=== PATIENT | female | born 1950 | race Caucasian/White ===

== ENCOUNTER 2016-03-27 10:53 | Outpatient (CLI) | payer MEDICAID | END 2016-03-27 10:54 | disposition home or self-care (01) | DX: I26.99 Other pulmonary embolism without acute cor pulmonale (principal) ==

== ENCOUNTER 2016-05-01 10:25 | Outpatient (CLI) | payer MEDICAID | END 2016-05-01 10:26 | disposition home or self-care (01) | DX: I26.99 Other pulmonary embolism without acute cor pulmonale (principal) ==

== ENCOUNTER 2016-05-28 09:57 | Outpatient (CLI) | payer MEDICARE, MEDICAID | END 2016-05-28 09:58 | disposition home or self-care (01) | DX: I26.99 Other pulmonary embolism without acute cor pulmonale (principal) ==

== ENCOUNTER 2016-06-04 09:58 | Outpatient (CLI) | payer MEDICARE, MEDICAID | END 2016-06-04 09:59 | disposition home or self-care (01) | DX: I26.99 Other pulmonary embolism without acute cor pulmonale (principal) ==

== ENCOUNTER 2016-06-15 09:40 | Outpatient (CLI) | payer MEDICARE, MEDICAID | END 2016-06-15 09:41 | disposition home or self-care (01) | DX: I26.99 Other pulmonary embolism without acute cor pulmonale (principal); R06.02 Shortness of breath; R00.2 Palpitations; Z95.1 Presence of aortocoronary bypass graft; I73.9 Peripheral vascular disease, unspecified; I10 Essential (primary) hypertension; E78.00 Pure hypercholesterolemia, unspecified; K21.9 Gastro-esophageal reflux disease without esophagitis; M79.7 Fibromyalgia ==

== ENCOUNTER 2016-07-17 08:31 | Outpatient (CLI) | payer MEDICARE | END 2016-07-17 08:32 | disposition home or self-care (01) | DX: I26.99 Other pulmonary embolism without acute cor pulmonale (principal); I20.8 Other forms of angina pectoris; Z95.1 Presence of aortocoronary bypass graft; I10 Essential (primary) hypertension; E78.00 Pure hypercholesterolemia, unspecified ==

== ENCOUNTER 2016-07-30 08:31 | Outpatient (CLI) | payer MEDICARE | END 2016-07-30 08:32 | disposition home or self-care (01) | DX: I10 Essential (primary) hypertension (principal) ==

== ENCOUNTER 2016-08-22 08:12 | Outpatient (CLI) | payer MEDICARE | END 2016-08-22 08:13 | disposition home or self-care (01) | LOC: LAB.F 08:12 | PROVIDERS: ATTEND Nurse Practitioner Gerontology | DX: I26.99 Other pulmonary embolism without acute cor pulmonale (principal) | CPT/HCPCS: 85610 ==

== ENCOUNTER 2016-09-24 09:16 | Outpatient (CLI) | payer MEDICARE | END 2016-09-24 09:17 | disposition home or self-care (01) | LOC: LAB.F 09:16 | PROVIDERS: ATTEND Nurse Practitioner Gerontology | DX: I26.99 Other pulmonary embolism without acute cor pulmonale (principal) | CPT/HCPCS: 85610 ==

== ENCOUNTER 2016-09-28 08:36 | Outpatient (CLI) | payer MEDICARE ==
[2016-09-28 12:22] LABS: ALBUMIN/GLOBULIN RATIO 1.2 (1.0-2.2); BILIRUBIN,TOTAL 0.4 mg/dL (0.2-1.0); CALCIUM 8.8 mg/dL (8.5-10.3); CREATININE 0.7 mg/dL (0.4-1.0); POTASSIUM 3.8 mmol/L (3.5-5.0); TOTAL PROTEIN 6.9 g/dL (6.7-8.2)
== END 2016-09-28 08:37 | disposition home or self-care (01) ==
LOC: LAB.F 08:36
PROVIDERS: ATTEND Nurse Practitioner Gerontology
DX: R60.0 Localized edema (principal)
CPT/HCPCS: 36415; 80053

== ENCOUNTER 2016-11-02 08:00 | Outpatient (CLI) | payer MEDICARE | END 2016-11-02 08:01 | disposition home or self-care (01) | LOC: LAB.N 08:00 | PROVIDERS: ATTEND Nurse Practitioner Gerontology | DX: I26.99 Other pulmonary embolism without acute cor pulmonale (principal) | CPT/HCPCS: 36415; 84443; 85610 ==

== ENCOUNTER 2016-12-03 10:40 | Outpatient (CLI) | payer MEDICARE | END 2016-12-03 10:41 | disposition home or self-care (01) | LOC: LAB.F 10:40 | PROVIDERS: ATTEND Nurse Practitioner Gerontology | DX: I26.99 Other pulmonary embolism without acute cor pulmonale (principal) | CPT/HCPCS: 85610 ==

== ENCOUNTER 2016-12-26 15:07 | Outpatient (CLI) | payer MEDICARE ==
[2016-12-26 16:10] LABS: CREATININE 0.9 mg/dL (0.4-1.0); POTASSIUM 4.9 mmol/L (3.5-5.0)
== END 2016-12-26 15:08 | disposition home or self-care (01) ==
LOC: LAB 15:07
PROVIDERS: ATTEND Internal Medicine Cardiovascular Disease
DX: I50.32 Chronic diastolic (congestive) heart failure (principal); I10 Essential (primary) hypertension
CPT/HCPCS: 36415; 80069

== ENCOUNTER 2017-01-08 10:24 | Outpatient (CLI) | payer MEDICARE, MEDICAID | END 2017-01-08 10:25 | disposition home or self-care (01) | LOC: LAB.F 10:24 | PROVIDERS: ATTEND Nurse Practitioner Gerontology | DX: I26.99 Other pulmonary embolism without acute cor pulmonale (principal) | CPT/HCPCS: 85610 ==

== ENCOUNTER 2017-01-18 10:12 | Outpatient (CLI) | payer MEDICARE | END 2017-01-18 10:13 | disposition home or self-care (01) | LOC: LAB.F 10:12 | PROVIDERS: ATTEND Nurse Practitioner Gerontology | DX: I26.99 Other pulmonary embolism without acute cor pulmonale (principal) | CPT/HCPCS: 85610 ==

== ENCOUNTER 2017-02-08 10:35 | Outpatient (CLI) | payer MEDICARE | END 2017-02-08 10:36 | disposition home or self-care (01) | LOC: LAB.F 10:35 | PROVIDERS: ATTEND Nurse Practitioner Gerontology | DX: I26.99 Other pulmonary embolism without acute cor pulmonale (principal) | CPT/HCPCS: 85610 ==

== ENCOUNTER 2017-02-26 13:00 | Outpatient (CLI) | payer MEDICARE | END 2017-02-26 13:01 | disposition home or self-care (01) | LOC: LAB.F 13:00 | PROVIDERS: ATTEND Nurse Practitioner Gerontology | DX: I26.99 Other pulmonary embolism without acute cor pulmonale (principal) | CPT/HCPCS: 85610 ==

== ENCOUNTER 2017-03-28 14:08 | Outpatient (CLI) | payer MEDICARE | END 2017-03-28 14:09 | LOC: LAB.N 14:08 | PROVIDERS: ATTEND Nurse Practitioner Gerontology | DX: I26.99 Other pulmonary embolism without acute cor pulmonale (principal) | CPT/HCPCS: 85610 ==

== ENCOUNTER 2017-04-23 15:13 | Outpatient (CLI) | payer MEDICARE | END 2017-04-23 15:14 | disposition home or self-care (01) | LOC: LAB.F 15:13 | PROVIDERS: ATTEND Nurse Practitioner Gerontology | DX: I26.99 Other pulmonary embolism without acute cor pulmonale (principal) | CPT/HCPCS: 85610 ==

== ENCOUNTER 2017-05-21 10:09 | Outpatient (CLI) | payer MEDICARE | END 2017-05-21 10:10 | disposition home or self-care (01) | LOC: LAB.F 10:09 | PROVIDERS: ATTEND Nurse Practitioner Gerontology | DX: I26.99 Other pulmonary embolism without acute cor pulmonale (principal) | CPT/HCPCS: 85610 ==

== ENCOUNTER 2017-06-10 08:00 | Outpatient (CLI) | payer MEDICARE | END 2017-06-10 08:01 | disposition home or self-care (01) | LOC: LAB.N 08:00 | PROVIDERS: ATTEND Nurse Practitioner Gerontology | DX: I26.99 Other pulmonary embolism without acute cor pulmonale (principal) | CPT/HCPCS: 85610 ==

== ENCOUNTER 2017-06-13 09:00 | Outpatient (CLI) | payer MEDICARE ==
[2017-06-13 10:32] LABS: BASOPHILS % (AUTO) 0.4 %; EOSINOPHILS # (AUTO) 0.2 10^3/uL (0.0-0.7); HGB - HEMOGLOBIN 13.4 g/dL (12.0-16.0); LYMPHOCYTES # (AUTO) 3.1 10^3/uL (1.5-3.5); LYMPHOCYTES % (AUTO) 37.5 %; MEAN CORPUSCULAR HEMOGLOBIN 26.9 pg (27.0-31.0); MEAN CORPUSCULAR HGB CONC 32.9 g/dL (32.0-36.0); MEAN CORPUSCULAR VOLUME 81.8 fL (81.0-99.0); MEAN PLATELET VOLUME 8.6 fL (7.9-10.8); MONOCYTES # (AUTO) 0.6 10^3/uL (0.0-1.0); MONOCYTES % (AUTO) 6.7 %; NEUTROPHILS # (AUTO) 4.4 10^3/uL (1.5-6.6); NEUTROPHILS % (AUTO) 53.4 %; PLT - PLATELET COUNT 295 10^3/uL (130-450); RED BLOOD COUNT 4.99 10^6/uL (4.20-5.40); RED CELL DISTRIBUTION WIDTH 16.2 % (12.0-15.0); WHITE BLOOD COUNT 8.2 x10^3/uL (4.8-10.8)
[2017-06-13 10:50] LABS: ALBUMIN 3.7 g/dL (3.2-5.5); ALBUMIN/GLOBULIN RATIO 1.1 (1.0-2.2); ALKALINE PHOSPHATASE 108 IU/L (42-121); ALT ALANINE AMINOTRANSFERASE 13 IU/L (10-60); AST ASPARTATE AMINOTRANSFERASE 20 IU/L (10-42); BILIRUBIN,TOTAL 0.5 mg/dL (0.2-1.0); BUN - BLOOD UREA NITROGEN 11 mg/dL (6-20); CARBON DIOXIDE - CO2 28 mmol/L (21-32); CHLORIDE 104 mmol/L (101-111); CHOL/HDL RATIO 5.3 (<4.4); CHOLESTEROL 208 mg/dL; CREATININE 0.8 mg/dL (0.4-1.0); GFR - MDRD 72 (>89); GLUCOSE 102 mg/dL (70-100); HDL CHOLESTEROL 39 mg/dL; LDL CHOLESTEROL,CALCULATED 123 mg/dL; LDL/HDL RATIO 3.2 (<4.4); SODIUM 139 mmol/L (135-145); TOTAL PROTEIN 7.1 g/dL (6.7-8.2); VLDL CHOLESTEROL 46 mg/dL
== END 2017-06-13 09:01 | disposition home or self-care (01) ==
LOC: LAB.F 09:00
PROVIDERS: ATTEND Nurse Practitioner Gerontology
DX: E78.5 Hyperlipidemia, unspecified (principal); I10 Essential (primary) hypertension; Z79.899 Other long term (current) drug therapy
CPT/HCPCS: 36415; 80053; 80061; 83721; 84443; 85025

== ENCOUNTER 2017-07-16 11:16 | Outpatient (CLI) | payer MEDICARE | END 2017-07-16 11:17 | disposition home or self-care (01) | LOC: LAB.F 11:16 | PROVIDERS: ATTEND Nurse Practitioner Gerontology | DX: I26.99 Other pulmonary embolism without acute cor pulmonale (principal) | CPT/HCPCS: 85610 ==

== ENCOUNTER 2017-08-09 14:12 | Outpatient (CLI) | payer MEDICARE | END 2017-08-09 14:13 | disposition home or self-care (01) | LOC: LAB.F 14:12 | PROVIDERS: ATTEND Nurse Practitioner Gerontology | DX: I26.99 Other pulmonary embolism without acute cor pulmonale (principal) | CPT/HCPCS: 85610 ==

== ENCOUNTER 2017-08-14 13:58 | Outpatient (CLI) | payer MEDICARE | END 2017-08-14 13:59 | disposition home or self-care (01) | LOC: LAB.F 13:58 | PROVIDERS: ATTEND Nurse Practitioner Gerontology | DX: I26.99 Other pulmonary embolism without acute cor pulmonale (principal) | CPT/HCPCS: 85610 ==

== ENCOUNTER 2017-08-23 13:59 | Outpatient (CLI) | payer MEDICARE | END 2017-08-23 14:00 | disposition home or self-care (01) | LOC: LAB.F 13:59 | PROVIDERS: ATTEND Nurse Practitioner Gerontology | DX: I26.99 Other pulmonary embolism without acute cor pulmonale (principal) | CPT/HCPCS: 85610 ==

== ENCOUNTER 2017-09-03 12:08 | Outpatient (CLI) | payer MEDICARE | END 2017-09-03 12:09 | disposition home or self-care (01) | LOC: LAB.F 12:08 | PROVIDERS: ATTEND Nurse Practitioner Gerontology | DX: I26.99 Other pulmonary embolism without acute cor pulmonale (principal) | CPT/HCPCS: 85610 ==

== ENCOUNTER 2017-09-23 11:21 | Outpatient (CLI) | payer MEDICARE | END 2017-09-23 11:22 | disposition home or self-care (01) | LOC: LAB.F 11:21 | PROVIDERS: ATTEND Nurse Practitioner Gerontology | DX: I26.99 Other pulmonary embolism without acute cor pulmonale (principal) | CPT/HCPCS: 85610 ==

== ENCOUNTER 2017-10-08 10:48 | Outpatient (CLI) | payer MEDICARE | END 2017-10-08 10:49 | disposition home or self-care (01) | LOC: LAB.F 10:48 | PROVIDERS: ATTEND Nurse Practitioner Gerontology | DX: I26.99 Other pulmonary embolism without acute cor pulmonale (principal) | CPT/HCPCS: 85610 ==

== ENCOUNTER 2017-10-24 11:33 | Outpatient (CLI) | payer MEDICARE | END 2017-10-24 11:34 | disposition home or self-care (01) | LOC: LAB.F 11:33 | PROVIDERS: ATTEND Nurse Practitioner Gerontology | DX: I26.99 Other pulmonary embolism without acute cor pulmonale (principal) | CPT/HCPCS: 85610 ==

== ENCOUNTER 2017-11-26 14:31 | Outpatient (CLI) | payer MEDICARE | END 2017-11-26 14:32 | disposition home or self-care (01) | LOC: LAB.F 14:31 | PROVIDERS: ATTEND Nurse Practitioner Gerontology | DX: I26.99 Other pulmonary embolism without acute cor pulmonale (principal) | CPT/HCPCS: 85610 ==

== ENCOUNTER 2017-12-26 13:05 | Outpatient (CLI) | payer MEDICARE | END 2017-12-26 13:06 | disposition home or self-care (01) | LOC: LAB.F 13:05 | PROVIDERS: ATTEND Nurse Practitioner Gerontology | DX: I26.99 Other pulmonary embolism without acute cor pulmonale (principal) | CPT/HCPCS: 85610 ==

== ENCOUNTER 2018-02-03 14:01 | Outpatient (CLI) | payer MEDICARE ==
[2018-02-03 18:13] LABS: INR 1.7 (0.8-1.2)
== END 2018-02-03 14:02 | disposition home or self-care (01) ==
LOC: LAB.F 14:01
PROVIDERS: ATTEND Nurse Practitioner Gerontology
DX: Z79.01 Long term (current) use of anticoagulants (principal)
CPT/HCPCS: 36415; 85610

== ENCOUNTER 2019-06-08 08:24 | Outpatient (CLI) | payer MEDICARE, MEDICAID ==
[2019-06-08 12:26] LABS: BASOPHILS # (AUTO) 0.1 10^3/uL (0.0-0.1); BASOPHILS % (AUTO) 0.6 %; EOSINOPHILS # (AUTO) 0.1 10^3/uL (0.0-0.7); EOSINOPHILS % (AUTO) 1.6 %; LYMPHOCYTES # (AUTO) 2.8 10^3/uL (1.5-3.5); LYMPHOCYTES % (AUTO) 34.9 %; MEAN CORPUSCULAR HGB CONC 31.4 g/dL (32.0-36.0); MEAN PLATELET VOLUME 10.8 fL (7.9-10.8); MONOCYTES # (AUTO) 0.6 10^3/uL (0.0-1.0); MONOCYTES % (AUTO) 7.3 %; NEUTROPHILS # (AUTO) 4.4 10^3/uL (1.5-6.6); NEUTROPHILS % (AUTO) 55.3 %; PLT - PLATELET COUNT 308 10^3/uL (130-450); RED BLOOD COUNT 5.56 10^6/uL (4.20-5.40); RED CELL DISTRIBUTION WIDTH 14.2 % (12.0-15.0)
[2019-06-08 12:44] LABS: ALBUMIN 3.8 g/dL (3.2-5.5); ALBUMIN/GLOBULIN RATIO 1.2 (1.0-2.2); ALKALINE PHOSPHATASE 108 IU/L (42-121); ALT ALANINE AMINOTRANSFERASE 13 IU/L (10-60); AST ASPARTATE AMINOTRANSFERASE 19 IU/L (10-42); BILIRUBIN,TOTAL 0.7 mg/dL (0.2-1.0); BUN - BLOOD UREA NITROGEN 13 mg/dL (6-20); CALCIUM 9.1 mg/dL (8.5-10.3); CARBON DIOXIDE - CO2 26 mmol/L (21-32); CHLORIDE 103 mmol/L (101-111); CHOL/HDL RATIO 6.6 (<4.4); CHOLESTEROL 318 mg/dL; CREATININE 0.8 mg/dL (0.4-1.0); GFR - MDRD 71 (>89); GLUCOSE 99 mg/dL (70-100); HDL CHOLESTEROL 48 mg/dL; LDL CHOLESTEROL,CALCULATED 234 mg/dL; LDL/HDL RATIO 4.9 (<4.4); SODIUM 139 mmol/L (135-145); TOTAL PROTEIN 7.1 g/dL (6.7-8.2); VLDL CHOLESTEROL 36 mg/dL
== END 2019-06-08 23:59 | disposition home or self-care (01) ==
LOC: LAB.N 08:24
PROVIDERS: ATTEND Nurse Practitioner Gerontology
DX: E78.5 Hyperlipidemia, unspecified (principal); I10 Essential (primary) hypertension; I25.10 Atherosclerotic heart disease of native coronary artery without angina pectoris
CPT/HCPCS: 36415; 80053; 80061; 83721; 85025

== ENCOUNTER 2020-04-25 21:47 | Emergency (ER) | payer MEDICARE, MEDICAID ==
[2020-04-25] MEDS ORDERED: SODIUM CHLORIDE 0.9% 1,000 ML IV STA (22:06)
[2020-04-25 22:30] LABS: BASOPHILS # (AUTO) 0.1 10^3/uL (0.0-0.1); BASOPHILS % (AUTO) 0.4 %; EOSINOPHILS % (AUTO) 0.3 %; HGB - HEMOGLOBIN 14.1 g/dL (12.0-16.0); LYMPHOCYTES # (AUTO) 2.2 10^3/uL (1.5-3.5); LYMPHOCYTES % (AUTO) 17.5 %; MEAN CORPUSCULAR HGB CONC 32.3 g/dL (32.0-36.0); MEAN CORPUSCULAR VOLUME 86.9 fL (81.0-99.0); MEAN PLATELET VOLUME 9.9 fL (7.9-10.8); MONOCYTES # (AUTO) 1.4 10^3/uL (0.0-1.0); NEUTROPHILS # (AUTO) 8.7 10^3/uL (1.5-6.6); NEUTROPHILS % (AUTO) 70.6 %; PLT - PLATELET COUNT 293 10^3/uL (130-450); RED BLOOD COUNT 5.03 10^6/uL (4.20-5.40); RED CELL DISTRIBUTION WIDTH 13.3 % (12.0-15.0); WHITE BLOOD COUNT 12.4 x10^3/uL (4.8-10.8)
[2020-04-25 22:44] LABS: D-DIMER > 1050.0 ng/mL (200.0-255.0)
[2020-04-25 22:45] LABS: ALBUMIN 3.6 g/dL (3.2-5.5); BILIRUBIN,TOTAL 0.9 mg/dL (0.2-1.0); CALCIUM 8.6 mg/dL (8.5-10.3); CREATININE 0.9 mg/dL (0.4-1.0); TOTAL PROTEIN 7.3 g/dL (6.7-8.2)
[2020-04-25 22:57] LABS: INR 1.3 (0.8-1.2); PT - PROTHROMBIN TIME 14.7 secs (9.9-12.6)
[2020-04-25] MEDS ORDERED: HYDROmorphone 1 MG/ML CARPUJECT IVP STA (23:20)
[2020-04-25] MEDS ORDERED: KETOROLAC 30 MG/ML VIAL IVP STA (23:21)
[2020-04-25] MEDS ORDERED: IOVERSOL 320 100 ML VIAL IVP ONE (23:47)
[2020-04-26] MEDS ORDERED: IOVERSOL 320 100 ML VIAL IVP ONE (00:29)
--- NOTE | 2020-04-26 00:33 | ED Physician Documentation ---
History of Present Illness - Stated complaint Stated Complaint: HURTS TO BREATHE - Chief complaint Chief Complaint: Resp - History obtained from History obtained from: Patient - Additonal information Additional information: Patient comes emergency department chief complaint of pain in right chest with breathing. Patient states that her symptoms all started when she took a fall 4 days ago onto her left side. She states she had her some pain in her left lateral chest at that time and that it also hurts to take a deep breath. She states that after 2 days, she was trying to crack her back when night when she felt a crack and suddenly, the pain moved to the right side. She states she has not had any further pain on the left since then. Patient denies fevers or chills. No palpitations. No cough. No nausea or vomiting. No radiation of the pain to anywhere else. Patient is coming because she states that it feels like when she had a pulmonary embolism before. Patient notes history of pu lmonary embolism 8 years ago and was on Coumadin until 3 years ago, at which time she self DC'd the med, citing side effects. The patient does not know what caused the PE, and thinks that no source was found, though records reveal that several years ago, patient was noted to have a DVT on lower extremity ultrasound. She states she has not had any further problems that she knows of until now. She denies any pain in her either of her legs. No swelling that is unusual. She states both her lower extremities swell about equally and are currently equally swollen to the usual amount. No other complaints at this time. Review of Systems Ten Systems: 10 systems reviewed and negative Constitutional: reports: Reviewed and negative. denies: Fever, Chills Eyes: reports: Reviewed and negative Ears: reports: Reviewed and negative Nose: reports: Reviewed and negative Throat: reports: Reviewed and negative Cardiac: reports: Chest pain / pressure Respiratory: reports: Reviewed and negative. denies: Dyspnea, Cough GI: reports: Reviewed and negative : reports: Reviewed and negative Skin: reports: Reviewed and negative Musculoskeletal: reports: Reviewed and negative Neurologic: reports: Reviewed and negative Psychiatric: reports: Reviewed and negative Endocrine: reports: Reviewed and negative Immunocompromised: reports: Reviewed and negative PD PAST MEDICAL HISTORY - Past Medical History Past Medical History: Yes Cardiovascular: Hypertension, High cholesterol, Coronary artery disease, Deep vein thrombosis, Pulmonary embolism Respiratory: None Endocrine/Autoimmune: None GI: GERD : Incontinence HEENT: None Psych: None Musculoskeletal: None Derm: None - Past Surgical History Past Surgical History: Yes Ortho: Knee replacement /[employer]: Hysterectomy Cardiovascular: CABG, Coronary stent HEENT: Tonsil/Adenoidectomy - Present Medications Home Medications: Ambulatory Orders Medication Instructions Recorded Confirmed Apixaban [Eliquis] 5 mg PO BID #120 tablet 04/26/20 Apixaban [Eliquis] 10 mg PO BID 7 Days #14 tablet 04/26/20 Azithromycin [Zithromax] 0 mg PO DAILY #6 tablet 04/26/20 HYDROcod/ACETAM 5/325 [[place] 5/325] 1 - 2 ea PO Q6H PRN #15 tablet 04/26/20 - Allergies Allergies/Adverse Reactions: Allergies Allergy/AdvReac Type Severity Reaction Status Date / Time Jfhwido-Mgf-Sws Reductase AdvReac Intermediate muscle Verified 04/25/20 21:51 Inhibitor tone problem - Social History Does the pt smoke?: No Smoking Status: Never smoker Does the pt drink ETOH?: No Does the pt have substance abuse?: No PD ED PE NORMAL - Vitals Vital signs reviewed: Yes - General General: Alert and oriented X 3, No acute distress, Well developed/nourished - HEENT HEENT: Atraumatic, PERRL, EOMI, Moist mucous membranes - Neck Neck: Supple, no meningeal sign - Cardiac Cardiac: RRR, No murmur, Strong equal pulses - Respiratory Respiratory: No respiratory distress, Clear bilaterally - Abdomen Abdomen: Soft, Non tender, Non distended - Derm Derm: Normal color, Warm and dry, No rash - Extremities Extremities: No deformity, No calf tenderness / cord, Other (Trace pitting edema bilaterally, calf size symmetrical.) - Neuro Neuro: Alert and oriented X 3 - Psych Psych: Normal mood, Normal affect Results - Vitals Vitals: Vital Signs - 24 hr 04/25/20 04/25/20 04/25/20 21:51 22:25 22:30 Temperature 36.5 C 36.6 C Heart Rate 100 99 95 Respiratory 20 22 24 Rate Blood Pressure 154/70 H 187/102 H 171/116 H O2 Saturation 96 97 97 04/25/20 04/25/20 04/26/20 23:00 23:30 00:30 Temperature 36.5 C Heart Rate 84 88 75 Respiratory 21 23 21 Rate Blood Pressure 179/78 H 185/72 H 157/74 H O2 Saturation 96 98 94 04/26/20 04/26/20 04/26/20 01:00 01:30 02:00 Temperature 36.8 C 36.7 C Heart Rate 75 86 72 Respiratory 24 22 19 Rate Blood Pressure 161/79 H 135/70 H 157/58 H O2 Saturation 93 94 95 04/26/20 04/26/20 04/26/20 02:30 03:00 03:30 Temperature 36.7 C 36.8 C 36.8 C Heart Rate 92 69 75 Respiratory 23 17 21 Rate Blood Pressure 155/69 H 156/68 H 165/73 H O2 Saturation 95 94 96 Oxygen O2 Source Room air - EKG (time done) 2213 Rate: Rate (enter#) (90) Rhythm: NSR [place]: Normal Intervals: Normal ME, Prolonged QT QRS: Normal Ischemia: Normal ST segments, Non specific changes Compare to prior EKG: Old EKG unavailable Computer interpretation: Agree with computer - Labs Labs: Laboratory Tests 04/25/20 04/25/20 04/25/20 22:23 22:23 22:23 WBC 12.4 H RBC 5.03 Hgb 14.1 Hct 43.7 MCV 86.9 MCH 28.0 MCHC 32.3 RDW 13.3 Plt Count 293 MPV 9.9 Neut # (Auto) 8.7 H Lymph # (Auto) 2.2 Vance # (Auto) 1.4 H Eos # (Auto) 0.0 Baso # (Auto) 0.1 Absolute Nucleated RBC 0.00 Nucleated RBC % 0.0 PT 14.7 H INR 1.3 H D-Dimer > 1050.0 H Sodium 135 Potassium 3.4 L Chloride 100 L Carbon Dioxide 25 Anion Gap 10.0 BUN 12 Creatinine 0.9 Estimated GFR (MDRD) 62 L Glucose 122 H Calcium 8.6 Total Bilirubin 0.9 AST 21 ALT 11 Alkaline Phosphatase 106 Troponin I High Sens B-Natriuretic Peptide Total Protein 7.3 Albumin 3.6 Globulin 3.7 Albumin/Globulin Ratio 1.0 Lipase 20 L 04/25/20 04/25/20 22:23 22:23 WBC RBC Hgb Hct MCV MCH MCHC RDW Plt Count MPV Neut # (Auto) Lymph # (Auto) Vance # (Auto) Eos # (Auto) Baso # (Auto) Absolute Nucleated RBC Nucleated RBC % PT INR D-Dimer Sodium Potassium Chloride Carbon Dioxide Anion Gap BUN Creatinine Estimated GFR (MDRD) Glucose Calcium Total Bilirubin AST ALT Alkaline Phosphatase Troponin I High Sens 4.8 B-Natriuretic Peptide 16 Total Protein Albumin Globulin Albumin/Globulin Ratio Lipase - Rads (name of study) CXR Radiology: Final report received, EMP read indepedently, See rad report (mild L basilar atelectasis) CTA chest Radiology: Final report received, EMP read indepedently (multiple bilateral PEs, multifocal peripheral consolidations bilaterally, atelectasis, infiltrates, or infarcts.), See rad report PD MEDICAL DECISION MAKING - ED course Complexity details: reviewed old records, reviewed results, re-evaluated patient, considered differential, d/w patient ED course: The patient's symptoms sounded more musculoskeletal, especially considering the patient's fall and the "cracking of the back" with pain moving over to the right. However, I was concerned about the patient's history of DVT and PE, so I did go ahead and get an EKG, chest x-ray, and labs. Work-up thus far was largely unremarkable, except for a D-dimer that was over 1000. I felt CTA of the thorax was indicated at this point, and this did show multiple bilateral small PEs. The patient then did undergo bilateral lower extremity ultrasound and was found to have extensive acute and chronic clot in both of her legs. The patient's cardiac silhouette was of normal size, and her troponin and BNP were normal. Additionally, the patient's vital signs were unremarkable, And I did not find evidence of right heart strain. I discussed the case with Dr. Gilliland, who is on-call for hospitalist service. According to both the has not yet and passed the scores, the patient was deemed very low risk and appropriate for outpatient management. I discussed this with the patient. She was started on Eliquis here in the emergency department and I also gave her Rocephin and Zithromax, as she did have some findings of infarct with possible infiltrate, most likely associated with the PEs, on CT. Patient was also given analgesia in the emergency department and I gave her prescriptions for all of the above medications at home to. I discussed with her that is extremely important that she follows up with her primary care physician, and that she also ought to see a product safety professional for further evaluation. I have given her some options for hematology, but most likely the best option would be for her to start with her primary care physician. We have discussed home management of symptoms, as well as the usual indications for return. Departure - Departure Disposition: 01 Home, Self Care Clinical Impression: Pulmonary embolism Qualifiers: Pulmonary embolism type: multiple subsegmental (without acute cor pulmonale) Qualified Code(s): I26.94 - Multiple subsegmental pulmonary emboli without acute cor pulmonale DVT (deep venous thrombosis) Qualifiers: DVT location: lower extremity Affected thrombotic vein of extremity: unspecified vein of extremity Chronicity: chronic Laterality: bilateral Qualified Code(s): I82.503 - Chronic embolism and thrombosis of unspecified deep veins of lower extremity, bilateral Condition: Stable Instructions: Embolism Pulmonary Dc Follow-Up: Jameel Moncada MD, PHD [Physician No Access] - Yossi Brewer MD [Physician No Access] - Fransisco Orozco MD [Physician No Access] - Rigo Baugh MD [Physician No Access] - Prescriptions: Apixaban [Eliquis] 10 mg PO BID 7 Days #14 tablet Apixaban [Eliquis] 5 mg PO BID #120 tablet HYDROcod/ACETAM 5/325 [[place] 5/325] 1 - 2 ea PO Q6H PRN #15 tablet PRN Reason: Pain Azithromycin [Zithromax] 0 mg PO DAILY #6 tablet Comments: The CT scan of your chest today reveals multiple small clots that have lodged in the arteries going into your lungs. This is caused some inflammation, which is not uncommon after a blood clot. Because there is a possibility of infection of this you have been started on antibiotics. You have also been started on an anticoagulant, or "blood thinner" to prevent further clot formation. The ultrasound of your legs shows clots in both deep veins of both legs. Review of your past records reveals that you have actually been found to have clots in your legs before, and this is most likely where your original pulmonary embolism came from. It is very important that you make an appointment today to follow- up with your doctor within the next week, and preferably, during this calendar week. Please take the Eliquis, or blood thinner, as directed. Your dose will be 10 mg twice a day for 7 days, followed by 5 mg twice a day. If you develop severe shortness of breath or chest pain, please return to the emergency department immediately. Otherwise, you may take the pain medication prescribed, as needed for pain. Discharge Date/Time: 04/26/20 03:53
[2020-04-26] MEDS ORDERED: APIXABAN 5 MG TABLET PO STA (01:23)
[2020-04-26] MEDS ORDERED: cefTRIAXone 2 GM in SODIUM CHLORIDE 0.9% MINIBAG 100 ML IV STA (01:24)
[2020-04-26] MEDS ORDERED: cefTRIAXone 2 GM VIAL ONE (01:43)
[2020-04-26] MEDS ORDERED: AZITHROMYCIN 250 MG TABLET PO STA (02:10)
[2020-04-26] MEDS ORDERED: ONDANSETRON 4 MG/2 ML VIAL IVP STA (03:35)
[2020-04-26] MEDS ORDERED: ONDANSETRON 4 MG/2 ML VIAL ONE (03:45)
[2020-04-26 03:49] VITALS: BP 165/73
--- NOTE | 2020-04-26 07:06 | CT Report ---
PROCEDURE: ANGIO CHEST W/WO INDICATIONS: R CP, h/o PE, Ddimer>1000 CONTRAST: IV CONTRAST: Optiray 320 ml: 80 PO CONTRAST: *NO PO CONTRAST TECHNIQUE: After the administration of intravenous contrast, 2 mm thick sections acquired from the pulmonary api cara to the posterior costophrenic angles. 3-dimensional maximum intensity projection (MIP) coronal a nd sagittal reformats were then acquired through the thorax. For radiation dose reduction, the follow ing was used: automated exposure control, adjustment of mA and/or kV according to patient size. COMPARISON: CT chest 01/02/2011. FINDINGS: Image quality: Excellent. Pulmonary arteries: Multiple filling defects noted in the right upper lobe and bilateral lower lobe s egmental and subsegmental arteries. Lungs and pleura: Focal areas consolidation in the periphery of the lungs bilaterally which could rep resent pneumonia or pulmonary infarcts. No pleural effusions or pneumothorax. Central and peripheral airways are patent. Mediastinum: Heart size is normal, without pericardial effusion. Surgical changes compatible prior C ABG procedure. No mediastinal or hilar adenopathy. Thoracic aorta is normal in caliber and enhanceme nt. Large hiatal hernia. Bones and chest wall: No suspicious bony lesions. Ribs and thoracic spine appear intact throughout. The thyroid is normal. No axillary or supraclavicular adenopathy. Abdomen: Partially calcified gallstone in the visualized gallbladder. Visualized upper abdominal adam id organs appear normal in the early arterial phase of enhancement. IMPRESSION: 1. Abnormal study demonstrating bilateral pulmonary emboli. 2. Bilateral multifocal peripheral lung consolidation concerning for pneumonia versus pulmonary infar cts. 3. Cholelithiasis. 4. Large hiatal hernia. Reviewed by: Padmini Salazar MD, PhD on 04/26/2020 7:05 AM PST Approved by: Padmini Salazar MD, PhD on 04/26/2020 7:05 AM PST Station ID: [id number]
--- NOTE | 2020-04-26 08:17 | XRAY Report ---
PROCEDURE: Chest 1 View X-Ray INDICATIONS: Chest Pain TECHNIQUE: One view of the chest was acquired. COMPARISON: None FINDINGS: Surgical changes and devices: Median sternotomy. Lungs and pleura: No pleural effusions or pneumothorax. Mild patchy opacity at the left lung base. Mediastinum: Mediastinal contours appear normal. Heart size is normal. Bones and chest wall: No suspicious bony lesions. Overlying soft tissues appear unremarkable. IMPRESSION: Mild left basilar atelectasis versus pneumonia. Concordant with preliminary interpretation. Reviewed by: Too Silverio MD on 04/26/2020 8:16 AM PST Approved by: Too Silverio MD on 04/26/2020 8:16 AM PST Station ID: [id number]
--- NOTE | 2020-04-26 08:27 | Ultrasound Report ---
PROCEDURE: Duplex Ext Veins Bilateral INDICATIONS: JOVANNY LAWLER TECHNIQUE: Real-time imaging, as well as color and pulse Doppler interrogation, were performed of the deep veins of both legs from the inguinal ligament to the popliteal fossa. COMPARISON: Duplex venous ultrasound 02/08/2013 FINDINGS: There is a small focus of nonocclusive thrombus within the right superficial femoral vein. Incomplete compression with nonocclusive thrombus is also noted in the right popliteal vein. The post erior tibial peroneal veins are suboptimally visualized. Remaining veins appear widely patent. Within the left deep venous system, there is an appearance of acute on chronic thrombus within the left pop liteal vein which extends to the posterior tibial vein. Remaining veins are patent. IMPRESSION: 1. Left acute on chronic thrombus within the left popliteal vein extending to the posterior tibial ve in. 2. Nonocclusive chronic thrombus within the right superficial femoral vein. 3. Nonocclusive suspected acute on chronic thrombus within the right popliteal vein. The above findings are concordant with preliminary report. Reviewed by: Chanel العراقي MD on 04/26/2020 8:26 AM PST Approved by: Chanel العراقي MD on 04/26/2020 8:26 AM PST Station ID: [id number]
== END 2020-04-26 03:53 | disposition home or self-care (01) ==
LOC: ED 21:47
DX: I26.94 Multiple subsegmental thrombotic pulmonary emboli without acute cor pulmonale (principal); I82.433 Acute embolism and thrombosis of popliteal vein, bilateral; I82.533 Chronic embolism and thrombosis of popliteal vein, bilateral; I82.442 Acute embolism and thrombosis of left tibial vein; I82.542 Chronic embolism and thrombosis of left tibial vein; I82.511 Chronic embolism and thrombosis of right femoral vein; I10 Essential (primary) hypertension; K44.9 Diaphragmatic hernia without obstruction or gangrene; K80.20 Calculus of gallbladder without cholecystitis without obstruction
CPT/HCPCS: 71045; 71275; 80053; 83690; 83880; 84484; 85025; 85379; 85610; 93005; 93970; 96361; 96365; 96375; 99284; A9270; J1170; Q9967

== ENCOUNTER 2022-08-29 12:45 | Outpatient (CLI) | payer MEDICARE, MEDICAID ==
--- NOTE | 2022-08-29 15:25 | MRI Report ---
PROCEDURE: MRI brain without contrast INDICATIONS: CONTUSION TO HEAD TECHNIQUE: Noncontrast axial T1 spin echo, axial T2 fast spin echo, sagittal and axial FLAIR, coronal T2 fast sp in echo, axial gradient echo, axial diffusion and ADC through the brain. COMPARISON: None. FINDINGS: Image quality: Excellent. CSF Spaces: Basal cisterns are patent. No extra-axial fluid collections. Ventricles are normal in size and shape. Brain: No intracranial masses or hemorrhage. Lopez/white matter interface is normal. Brainstem appe ars normal. Diffusion-weighted images demonstrate no acute infarct. Normal intravascular flow voids are present. Mild atrophy and white matter chronic ischemic change noted. Small 3 mm cyst in the right subinsular white matter may reflect small incidental neuroglial cyst or enlarged perivascular space. Skull and face: Calvarium has normal marrow signal. Right intraocular lens replacement. Sinuses: Sinuses and mastoids are clear. IMPRESSION: Mild atrophy and chronic ischemic change without acute infarct, hemorrhage or mass lesion Reviewed by: Cristiano Goncalves MD on 08/29/2022 2:24 PM AKDT Approved by: Cristiano Goncalves MD on 08/29/2022 2:24 PM AKDT Station ID: [id number]
== END 2022-08-29 12:46 | disposition home or self-care (01) ==
LOC: DI 12:45
PROVIDERS: ATTEND Physician Assistant Medical
DX: Z86.718 Personal history of other venous thrombosis and embolism (principal); Z86.711 Personal history of pulmonary embolism; S00.83XA Contusion of other part of head, initial encounter; H91.23 Sudden idiopathic hearing loss, bilateral; G31.89 Other specified degenerative diseases of nervous system; I67.82 Cerebral ischemia

== ENCOUNTER 2023-02-01 07:25 | Emergency (ER) | payer MEDICARE, MEDICAID ==
--- NOTE | 2023-02-01 08:01 | ED Physician Documentation ---
PD HPI DYSPNEA - Stated complaint Stated Complaint: SOA,BACK PX - Chief complaint Chief Complaint: Resp - History obtained from History obtained from: Patient - History of Present Illness Timing - onset: How many days ago (2) Timing - onset during: Rest, Light activity Timing - duration: Days (2) Timing - details: Gradual onset, Still present Inciting event(s): No: URI, Immobilization/travel Improved by: Rest Worsened by: Exertion, Coughing. No: Laying flat Associated symptoms: Chest pain / discomfort (left posterolateral lower chest/ribs area, pain with movement, breathing, and cough.). No: Fever, Cough, Wheezing Similar symptoms before: Diagnosis (she states is similar to when had pulmonary embolism.) Recently seen: Not recently seen Review of Systems Constitutional: denies: Fever, Chills Nose: denies: Rhinorrhea / runny nose, Congestion Throat: denies: Sore throat Cardiac: denies: Palpitations, Pedal edema, Calf pain Respiratory: reports: Cough (mild without sputum production). denies: Wheezing GI: denies: Abdominal Pain, Vomiting, Diarrhea Skin: denies: Rash, Lesions Musculoskeletal: denies: Extremity swelling Neurologic: denies: Focal weakness, Numbness PD PAST MEDICAL HISTORY - Past Medical History Cardiovascular: Hypertension, High cholesterol, Coronary artery disease, Deep vein thrombosis, Pulmonary embolism Respiratory: None Endocrine/Autoimmune: None GI: GERD : Incontinence HEENT: None Psych: None Musculoskeletal: None Derm: None - Past Surgical History Past Surgical History: Yes Ortho: Knee replacement /POSTING SPECIALIST: Hysterectomy Cardiovascular: CABG, Coronary stent HEENT: Tonsil/Adenoidectomy - Present Medications Home Medications: Ambulatory Orders Medication Instructions Recorded Confirmed Amoxicillin 500 mg PO TID #18 cap 02/01/23 HYDROcod/ACETAM 5/325 [[place] 5/325] 1 ea PO Q6H PRN #18 tablet 02/01/23 Meloxicam [Mobic] 7.5 mg PO BID 10 Days #20 tablet 02/01/23 Ondansetron Odt [Zofran] 4 mg TL Q6H PRN #15 tablet 02/01/23 - Allergies Allergies/Adverse Reactions: Allergies Allergy/AdvReac Type Severity Reaction Status Date / Time [id number]-[id number]-EnF Reductase AdvReac Intermediate muscle Verified 04/25/20 21:51 Inhibitor tone [Xbjsctb-Aqt-Ekb Reductase problem Inhibitor] - Social History Does the pt smoke?: No Smoking Status: Never smoker Does the pt drink ETOH?: No Does the pt have substance abuse?: No PD ED PE NORMAL - Vitals Vital signs reviewed: Yes - General General: Alert and oriented X 3, No acute distress, Well developed/nourished - HEENT HEENT: Pharynx benign - Neck Neck: Supple, no meningeal sign, No adenopathy - Cardiac Cardiac: RRR (normal rate at time of my exam. Initial triage was tachycardic.), No murmur - Respiratory Respiratory: Clear bilaterally - Abdomen Abdomen: Soft, Non tender - Rectal Rectal: Deferred - Derm Derm: Normal color, Warm and dry - Extremities Extremities: Normal ROM s pain, No edema, No calf tenderness / cord Results - Vitals Vitals: Vital Signs - 24 hr 02/01/23 02/01/23 02/01/23 07:27 10:00 13:43 Temperature 36.7 C Heart Rate 110 H 66 73 Respiratory 22 15 14 Rate Blood Pressure 148/82 H 153/73 H 148/72 H O2 Saturation 98 95 98 02/01/23 13:55 Temperature 36.8 C Heart Rate Respiratory Rate Blood Pressure O2 Saturation Oxygen O2 Source Room air - EKG (time done) 07 EKG releavant findings:: EKG personally interpreted by author of this note. Relevant findings are: Rate: Rate (enter#) (88) Rhythm: NSR [place]: Normal Intervals: Normal NV QRS: Normal Ischemia: Normal ST segments. No: ST elevation c/w ischemia, ST depression Compare to prior EKG: Unchanged from prior EKG (04/25/20) - Labs Labs: Laboratory Tests 02/01/23 02/01/23 02/01/23 07:59 07:59 07:59 WBC 11.2 H RBC 5.61 H Hgb 15.4 Hct 47.0 MCV 83.8 MCH 27.5 MCHC 32.8 RDW 13.6 Plt Count 264 MPV 10.0 Neut # (Auto) 7.9 H Lymph # (Auto) 1.9 [place] # (Auto) 1.3 H Eos # (Auto) 0.0 Baso # (Auto) 0.0 Absolute Nucleated RBC 0.00 Nucleated RBC % 0.0 D-Dimer 556.6 H Sodium 135 Potassium 3.6 Chloride 102 Carbon Dioxide 24 Anion Gap 9.0 BUN 12 Creatinine 0.8 Estimated GFR (MDRD) 71 L Glucose 123 H Calcium 9.2 Total Bilirubin 0.9 AST 11 ALT 5 L Alkaline Phosphatase 99 Troponin I High Sens 6.0 B-Natriuretic Peptide Total Protein 6.9 Albumin 4.1 Globulin 2.8 Albumin/Globulin Ratio 1.5 Lipase 10 L 02/01/23 07:59 WBC RBC Hgb Hct MCV MCH MCHC RDW Plt Count MPV Neut # (Auto) Lymph # (Auto) [place] # (Auto) Eos # (Auto) Baso # (Auto) Absolute Nucleated RBC Nucleated RBC % D-Dimer Sodium Potassium Chloride Carbon Dioxide Anion Gap BUN Creatinine Estimated GFR (MDRD) Glucose Calcium Total Bilirubin AST ALT Alkaline Phosphatase Troponin I High Sens B-Natriuretic Peptide 55 Total Protein Albumin Globulin Albumin/Globulin Ratio Lipase - Rads (name of study) chest xray Relevant Findings:: Prelim report reviewed, EMP independent interpretation of test (no acute process.) ct chest Relevant Findings:: Prelim report reviewed (no PEs. Small area left lung base of infiltrate, presume pneumonia. no PTX nor effusion. Hiatal hernia again noted.), EMP independent interpretation of test PD Medical Decision Making - ED course Complexity details: reviewed results (No PE. Reading of CT states infiltration left lower lung, which is where pt hurts. ), considered differential (pleuritic chest/back pain left side. Tachycardic initially. Can get d-dimer to screen and BNP. Chest xray unremarkable.Can get CT angiot to eval for PE/other prlobems.), d/w patient Reviewed Lab Results: Normal white count and blood count. Negative troponin. Normal ECG adn initial xray. concern fro PE and d-dimer screening was elevated for weight nbased criteria. Will order CT-A. The CT angio did not show any PEs. there was an infiltrate lower left. Departure - Departure Disposition: 01 Home, Self Care Clinical Impression: Pleuritic chest pain, Pneumonia Clinical Impression: (Ruled Out): Pulmonary embolism Condition: Stable Record reviewed to determine appropriate education?: Yes Instructions: ED Chest Pain Pleurisy Follow-Up: Doretha Rosario ARNP [Primary Care Provider] - Prescriptions: Amoxicillin 500 mg PO TID #18 cap Meloxicam [Mobic] 7.5 mg PO BID 10 Days #20 tablet HYDROcod/ACETAM 5/325 [[place] 5/325] 1 ea PO Q6H PRN #18 tablet PRN Reason: Pain Ondansetron Odt [Zofran] 4 mg TL Q6H PRN #15 tablet PRN Reason: Nausea / Vomiting Comments: Your CT scan does not show any blood clots. They do see an area in the left base that they are calling a pneumonia. This correlates with the area that you are having pain so presume some inflammatory aspect to the surface of the lung (pleurisy). We will treat this with an antibiotic for the pneumonia as well as an anti-i nflammatory for the pleurisy. Add Tylenol every 4-6 hours if needed for pain or hydrocodone/acetaminophen if needed for worse pain. I also prescribed a nausea medicine ondansetron if needed for nausea. I sent these prescriptions to your preferred pharmacy, [facility] in [place]. Recheck if not improving well over the next few days and resolved by 3 to 5 days. Return if worse. I am prescribing a short course of narcotic pain medication for you. These are potentially dangerous and addictive medications that should be used carefully. These medications may constipate you. Take an oqof-uid-nfjyvhq stool softener such as docusate twice daily with plenty of water while taking these medications. If you go 24 hours without a bowel movement, take [id number]-tkihqdk MiraLAX, per package instructions. Do not drink or drive while taking these medications. If you received narcotic or sedating medications while in the emergency department do not drive for 24 hours. Store this medication in a safe, secure place and out of reach of children. It is a violation of federal law to give or sell this medication to another person or to use in a manner other than prescribed. The ED will not refill narcotic prescriptions, including prescriptions lost or stolen. You can dispose of unwanted medications at the [facility]'s office or at several pharmacies such as [facility]. No signs of heart cause for your pain with a normal EKG and blood test to exclude heart attack and heart failure. Forms: PCP List Discharge Date/Time: 02/01/23 14:00
[2023-02-01 08:10] LABS: BASOPHILS % (AUTO) 0.4 %; EOSINOPHILS % (AUTO) 0.4 %; HGB - HEMOGLOBIN 15.4 g/dL (12.0-16.0); LYMPHOCYTES # (AUTO) 1.9 10^3/uL (1.5-3.5); LYMPHOCYTES % (AUTO) 17.3 %; MEAN CORPUSCULAR HEMOGLOBIN 27.5 pg (27.0-31.0); MEAN CORPUSCULAR HGB CONC 32.8 g/dL (32.0-36.0); MEAN CORPUSCULAR VOLUME 83.8 fL (81.0-99.0); MONOCYTES # (AUTO) 1.3 10^3/uL (0.0-1.0); MONOCYTES % (AUTO) 11.3 %; NEUTROPHILS # (AUTO) 7.9 10^3/uL (1.5-6.6); NEUTROPHILS % (AUTO) 70.3 %; PLT - PLATELET COUNT 264 10^3/uL (130-450); RED BLOOD COUNT 5.61 10^6/uL (4.20-5.40); RED CELL DISTRIBUTION WIDTH 13.6 % (12.0-15.0); WHITE BLOOD COUNT 11.2 x10^3/uL (4.8-10.8)
--- NOTE | 2023-02-01 08:16 | XRAY Report ---
PROCEDURE: Chest 1 View X-Ray INDICATIONS: Chest pain TECHNIQUE: One view of the chest was acquired. COMPARISON: 04/25/2020. FINDINGS: Surgical changes and devices: Remote CABG Lungs and pleura: No pleural effusions or pneumothorax. Mild bibasilar atelectasis. Mediastinum: Mediastinal contours appear normal. Heart size is normal. Moderately large hiatal he rnia Bones and chest wall: No suspicious bony lesions. Overlying soft tissues appear unremarkable. IMPRESSION: 1. Moderately large hiatal hernia. 2. Mild bibasilar atelectasis. Reviewed by: Rosalino Dodson MD on 02/01/2023 8:15 AM PST Approved by: Rosalino Dodson MD on 02/01/2023 8:15 AM PST Station ID: [id number]
[2023-02-01 08:21] LABS: ALBUMIN 4.1 g/dL (3.2-5.5); ALBUMIN/GLOBULIN RATIO 1.5 (1.0-2.2); BILIRUBIN,TOTAL 0.9 mg/dL (0.2-1.0); CALCIUM 9.2 mg/dL (8.5-10.3); CREATININE 0.8 mg/dL (0.6-1.3); POTASSIUM 3.6 mmol/L (3.5-4.5); TOTAL PROTEIN 6.9 g/dL (6.4-8.9)
[2023-02-01] MEDS ORDERED: HYDROmorphone 1 MG/ML CARPUJECT IVP STA (08:59)
[2023-02-01] MEDS ORDERED: KETOROLAC 15 MG/ML VIAL IVP STA (08:59)
[2023-02-01] MEDS ORDERED: ONDANSETRON 4 MG/2 ML VIAL IVP STA (09:57)
[2023-02-01] MEDS ORDERED: iohexoL-300 100 ML VIAL IVP ONE (10:57)
[2023-02-01] MEDS ORDERED: HYDROmorphone 0.5 MG/0.5 ML SYRINGE IVP STA (11:05)
--- NOTE | 2023-02-01 11:15 | CT Report ---
PROCEDURE: ANGIO CHEST W/WO INDICATIONS: pleuritic left back pain; elevated d-dimer CONTRAST: 100ml omni 300 TECHNIQUE: After the administration of intravenous contrast, 2 mm axial images were acquired from the pulmonary apices to the posterior costophrenic angles during the arterial phase. In addition, 1 mm lung kernel and 5 mm soft tissue kernel reconstructions were performed. 3-dimensional coronal oblique maximum int ensity projection (MIP) reformats, 8 mm axial MIP, and 5 mm coronal and sagittal MPR reformats were t hen performed through the thorax. For radiation dose reduction, the following was used: automated exp osure control, adjustment of mA and/or kV according to patient size. COMPARISON: 02/17/2023 FINDINGS: Image quality: Excellent. Large vessels: No filling defects within the opacified pulmonary arteries, accounting for motion and contrast timing. No evidence of acute aortic syndrome or aortic aneurysm. Lungs and pleura: No consolidation. No pleural effusions. No pneumothorax. There is a wedge-shaped p leural-based nodular density in the inner basal segment of the right lower lobe which was present in 2013, and is increased in size relative to that study. On the previous study, prior image 86/5, it me asured approximately 9 x 11 mm. It currently measures approximately 12 x 15 mm on current image 158/4 . There is a large left-sided stomach containing hiatal hernia with associated atelectasis versus sca rring in the subjacent left lower lobe. The size of the hiatal hernia is increased compared to the ol d study. There is also potentially focal consolidation in the extreme left lung base. Mediastinum: Heart size is mildly enlarged. Remote CABG. Severe coronary artery calcifications. No pe ricardial effusion. No large vessel abnormality. No mediastinal adenopathy by size criteria. Chest wall and lower neck: Thyroid is unremarkable. No axillary or supraclavicular adenopathy by size . Bones: No aggressive osseous abnormality. Upper Abdomen: A gallstone is present. There is diffuse hepatic steatosis.. IMPRESSION: 1. No acute pulmonary emboli. 2. Interval increase in size of a large left-sided stomach containing hiatal hernia. There is associa aquiles decrease in atelectasis versus scarring. 3. There may also be a superimposed focal pneumonia in the extreme left lung base. 4. A wedge-shaped pleural-based density in the anterobasal right lower lobe is slightly increased in size. It is most likely benign. 5. Remote CABG, mild cardiomegaly, severe coronary artery calcifications. 6. Diffuse hepatic steatosis. 7. Gallstone. Comment: Consider 6 month follow-up CT to evaluate the status of the wedge-shaped density in the ante rior basal right lower lobe. Reviewed by: Rosalino Dodson MD on 02/01/2023 11:14 AM [facility] Approved by: Rosalino Dodson MD on 02/01/2023 11:14 AM [facility] Station ID: [id number]
[2023-02-01] MEDS ORDERED: AMOXICILLIN 250 MG CAPSULE PO STA (12:50)
[2023-02-01] MEDS ORDERED: DROPERIDOL 5 MG/2 ML VIAL IVP STA (13:13)
[2023-02-01 13:49] VITALS: BP 148/72; O2SAT 98
== END 2023-02-01 14:00 | disposition home or self-care (01) ==
LOC: ED 07:25
DX: J18.9 Pneumonia, unspecified organism (principal); R07.81 Pleurodynia
CPT/HCPCS: 36415; 71045; 71275; 80053; 83690; 83880; 84484; 85025; 85379; 93005; 96374; 96375; 96376; 99284; A9270; J1170; Q9967

== ENCOUNTER 2023-07-04 12:08 | Outpatient (CLI) | payer MEDICARE, MEDICAID | END 2023-07-04 12:09 | disposition home or self-care (01) | LOC: DI 12:08 | PROVIDERS: ATTEND Registered Nurse | DX: I82.90 Acute embolism and thrombosis of unspecified vein (principal); E78.5 Hyperlipidemia, unspecified; I10 Essential (primary) hypertension; I25.10 Atherosclerotic heart disease of native coronary artery without angina pectoris; I49.3 Ventricular premature depolarization; Z86.711 Personal history of pulmonary embolism; Z79.01 Long term (current) use of anticoagulants | CPT/HCPCS: 93307 ==